=== PATIENT | male | born 1940 | race Caucasian/White ===

== ENCOUNTER 2021-01-01 10:33 | Outpatient (RCR) | payer MEDICARE, SELFPAY ==
[2016-05-25 20:24] VITALS: BMI 31.2
== END 2021-01-01 23:59 ==
LOC: IMMUN 10:33
PROVIDERS: PCP Family Medicine; Referring Provider Family Medicine; Visit Provider Family Medicine
DX: Z23 Encounter for immunization (principal)
CPT/HCPCS: 0011A; 0012A